=== PATIENT | male | born 1970 | race Two or more races ===

== ENCOUNTER → 2020-11-16 | Emergency (ER) | payer OTHER ==
[~2020-11-16] VITALS: Ht 162.6 cm; Wt 79.4 kg
[~2020-11-16] MED LIST: VISTARIL50 MG PO
== END | disposition home or self-care (01) ==
LOC: ER 00:13
DX: R53.81 Other malaise (principal); F41.1 Generalized anxiety disorder

== ENCOUNTER 2024-07-08 16:31 | Emergency (ER) | payer OTHER ==
[~2024-07-08] VITALS: Ht 170.2 cm; Wt 98.9 kg
[2024-07-08 18:02] VITALS: BP 128/75; O2SAT 99
[2024-07-08] MEDS ORDERED: KETOROLAC TROMETHAMINE 60 MG VIAL IM ONE (18:45)
[2024-07-08] MEDS ORDERED: DEXAMETHASONE SODIUM PHOSPHATE 4 MG/ML VIAL IM ONE (18:45)
[2024-07-08 19:47] LABS: HEMATOCRIT 38.5 % (39.0-48.0); HEMOGLOBIN 12.9 g/dL (13-16.00); MEAN CELL VOLUME 95.9 fL (80.0-100.00); MEAN CORPUSCULAR HEMOGLOBIN 32.1 pg (27.00-32.0); MEAN CORPUSCULAR HGB CONC 33.5 g/dl (32.0-36.0); PLATELET COUNT 268 K/uL (150-450); RED BLOOD COUNT 4.01 M/uL (4.00-6.00); RED CELL DISTRIBUTION WIDTH 14.4 % (11.5-14.5)
[2024-07-08] MEDS ORDERED: AMOX-CLAV 875-1 EACH PO (22:24)
[2024-07-08] MEDS ORDERED: IBU600 MG PO (22:24)
== END 2024-07-08 22:42 | disposition home or self-care (01) ==
LOC: ER 16:31
PROVIDERS: Preventive Medicine Public Health & General Preventive Medicine
DX: J02.9 Acute pharyngitis, unspecified (principal); Z21 Asymptomatic human immunodeficiency virus [HIV] infection status; F32.9 Major depressive disorder, single episode, unspecified; F43.10 Post-traumatic stress disorder, unspecified; Z20.822 Contact with and (suspected) exposure to COVID-19
CPT/HCPCS: 36415; 96372; 99282; J1100; J1885